=== PATIENT | male | born 1995 | race Caucasian/White ===

== ENCOUNTER 2019-01-11 00:28 | Emergency (ER) | payer OTHER ==
[~2019-01-11] VITALS: Ht 195.6 cm; Wt 90.7 kg
[2019-01-11 00:30] VITALS: BP 129/81
== END 2019-01-11 01:28 | disposition home or self-care (01) ==
LOC: ER 00:28
DX: Z71.1 Person with feared health complaint in whom no diagnosis is made (principal); R42 Dizziness and giddiness; R41.82 Altered mental status, unspecified; R55 Syncope and collapse